=== PATIENT | male | born 1955 | race Asian ===

== ENCOUNTER 2017-03-18 05:06 | Emergency (ER) | payer SELFPAY ==
[~2017-03-18] VITALS: Ht 17.8 cm; Wt 65.0 kg
[2017-03-18 05:13] VITALS: TEMP 97.8
[2017-03-18] MEDS ORDERED: LOSARTAN (05:19)
[2017-03-18] MEDS ORDERED: PROTONIX 40MG T40 MG (05:19)
[2017-03-18] MEDS ORDERED: AMLODIPINE (05:19)
[2017-03-18] MEDS ORDERED: GLUCOPHAGE500 MG/TAB (05:20)
[2017-03-18] MEDS ORDERED: SYNTHROID 0.0.025 MG (05:21)
[2017-03-18 06:29] LABS: COLLECTION METHOD CLEAN CATCH
[2017-03-18 06:32] LABS: BASO % 0.4 % (0.0-2.0); EOS % 0.5 % (0-4.0); GRAN # 5.8 (1.4-6.5); GRAN % 75.5 % (42.2-75.2); HEMATOCRIT 38.1 % (42.0-52.0); HEMOGLOBIN 13.2 g/dl (13.5-18.0); LYMPH # 0.9 (1.2-3.4); LYMPH % 11.6 % (20.0-51.0); MEAN CELL VOLUME 77 fl (80.0-100.0); MEAN CORPUSCULAR HEMOGLOBIN 27 pg (27.0-31.0); MEAN CORPUSCULAR HGB CONC 35 g/dl (33.0-37.0); MEAN PLATELET VOLUME 9.5 fl (7.4-10.4); MONO # 0.9 (0.1-0.6); MONO % 11.7 % (1.7-9.3); PLATELET COUNT 243 K/mm3 (130-400); RED BLOOD COUNT 4.94 M/mm3 (4.20-5.60); REDCELL DISTRIBUTION WIDTH-CV 12.3 % (11.5-14.5)
[2017-03-18 06:35] LABS: PH 8 (5-8); SQUAMOUS EPITHELIAL None Seen /hpf; URINE APPEARANCE Clear; URINE BACTERIA None Seen /hpf; URINE BILIRUBIN Negative (NEGATIVE); URINE BLOOD Negative (NEGATIVE); URINE COLOR Straw; URINE GLUCOSE Negative (NEGATIVE); URINE KETONE Trace (NEGATIVE); URINE LEUKOCYTE ESTERASE Negative (NEGATIVE); URINE NITRATE Negative (NEGATIVE); URINE PROTEIN(semi-quant) Negative (NEGATIVE); URINE RBC 0-2 /hpf; URINE UROBILINOGEN Negative (NEGATIVE)
[2017-03-18 06:44] LABS: ALANINE AMINOTRANSFERASE 22 U/L (21-72); ALBUMIN 4.8 gm/dL (3.5-5.0); ALKALINE PHOSPHATASE 86 U/L (50-136); ANION GAP 11 mmol/L (7-16); AST,SGOT 18 U/L (15-37); BLOOD UREA NITROGEN 3 mg/dL (9-20); C-REACTIVE PROTEIN < 0.5 mg/dL (0.0-0.9); CALCIUM 9.7 mg/dL (8.4-10.2); CARBON DIOXIDE 24 mmol/L (22-30); CHLORIDE 96 mmol/L (98-107); CREATININE, serum 0.64 mg/dL (0.66-1.25); GLUCOSE 133 mg/dL (74-106); LIPASE 93 U/L (23-300); SODIUM 131 mmol/L (137-145); TOTAL PROTEIN 7.9 gm/dL (6.4-8.2)
[2017-03-18 06:53] LABS: TROPONIN-I < 0.012 ng/mL (0.000-0.034)
[2017-03-18 08:48] VITALS: BP 130/83; PULSE 92
== END 2017-03-18 08:50 | disposition home or self-care (01) ==
LOC: COL.ER 05:06
PROVIDERS: Emergency Medicine
DX: K59.00 Constipation, unspecified (principal); E11.9 Type 2 diabetes mellitus without complications; Z79.84 Long term (current) use of oral hypoglycemic drugs
CPT/HCPCS: J7030